=== PATIENT | male | born 1985 | race Caucasian/White ===

== ENCOUNTER → 2023-05-27 07:20 | Outpatient (CLI) | payer OTHER, SELFPAY ==
--- NOTE | ~2023-05-27 | XR_ITS ---
Left Shoulder Technique: AP and axillary views were obtained. Clinical History: Pain Findings: No fracture or dislocation is seen. Osseous alignment is anatomic. The glenohumeral and acr omioclavicular joint spaces are preserved. Calcified left hilar lymph nodes are noted. Impression: No osseous or articular abnormality of the shoulder. Calcified left hilar lymph nodes. Reviewed, dictated and finalized at location . Impression: No osseous or articular abnormality of the shoulder. Calcified left hilar lymph nodes.
== END ==
PROVIDERS: PCP Family Medicine; Visit Provider Family Medicine
DX: M25.511 Pain in right shoulder (principal); G89.29 Other chronic pain
CPT/HCPCS: 73030